=== PATIENT | female | born 1970 | race Caucasian/White ===

== ENCOUNTER 2017-08-21 20:50 | Emergency (ER) | payer OTHER ==
[~2017-08-21] VITALS: Ht 162.6 cm; Wt 65.0 kg
[2017-08-21 21:28] VITALS: BP 109/76; PULSE 89; RESP 18; TEMP 98.1; O2SAT 99
--- NOTE | 2017-08-21 22:32 | RADRPT ---
EXAM DATE/TIME: 08/21/2017 22:17 [place] COMPARISON: No previous studies available for comparison. INDICATIONS : Laceration to right foot from broken plate. MEDICAL HISTORY : None. SURGICAL HISTORY : None. ENCOUNTER: Initial ACUITY: 1 day PAIN SCORE: 3/10 LOCATION: Right foot FINDINGS: Three view examination of the right foot demonstrates no soft tissue swelling, dislocation, or fractu re. The tarsal bones appear intact. The interphalangeal and metatarsophalangeal joints are intact. The calcaneus is intact. Bony mineralization is normal. There is a soft tissue deformity at the fi rst and second digits seen on the oblique view consistent with a laceration. CONCLUSION: No fracture or foreign body. Rickie Cassidy MD on August 21, 2017 at 22:27 Board Certified Radiologist. This report was verified electronically.
[2017-08-21] MEDS ORDERED: TETANUS/DIPHTHERIA TOXOID ADULT 0.5 ML VIAL IM ONE (22:45)
[2017-08-21] MEDS ORDERED: IBUP1TAB7 PO (23:23)
--- NOTE | 2017-08-21 23:24 | PD ---
HPI Chief Complaint: Injury Time Seen by Provider: 22:40 Travel History International Travel<30 days: No Contact w/Intl Traveler<30days: No Traveled to known affect area: No History of Present Illness HPI Patient is a 46-year-old female presenting to the emergency department for evaluation of a right first toe laceration. Patient was washing dishes when she dropped the plate, subsequently cutting her foot. She denies any significant pain. She denies any numbness or tingling. She states her last tetanus vaccine was at least 5 years ago. Symptom onset was sudden, symptoms are mild in nature. There are no alleviating factors. PFSH Past Medical History Medical History: Denies Significant Hx Diminished Hearing: No Tetanus Vaccination: < 5 Years Influenza Vaccination: Yes ?: Not Past Surgical History Hysterectomy: Yes Other Surgery: Yes (stapendectomy x2 ) Social History Alcohol Use: Yes (daily ) Tobacco Use: Yes Allergies-Medications (Allergen,Severity, Reaction): Coded Allergies: No Known Allergies (Unverified , 08/21/17) Review of Systems Except as stated in HPI: all other systems reviewed are Neg Skin: Positive Other (Laceration) Physical Exam Narrative GENERAL: Well-developed, well-nourished, alert female. Presenting in no acute distress. SKIN: Warm and dry. 2.5 cm superficial laceration to the dorsal aspect of the right first toe at the MTP joint. Base of wound is well visualized, there is no retained foreign body or tendon involvement. HEAD: Normocephalic. EYES: No scleral icterus. No injection or drainage. NECK: Supple, trachea midline. No JVD or lymphadenopathy. CARDIOVASCULAR: Regular rate and rhythm without murmurs, gallops, or rubs. RESPIRATORY: Breath sounds equal bilaterally. No accessory muscle use. GASTROINTESTINAL: Abdomen soft, non-tender, nondistended. MUSCULOSKELETAL: No cyanosis, or edema. Patient is neurovascularly intact. With full range of motion with flexion and extension of right first toe. BACK: Nontender without obvious deformity. No CVA tenderness. Data Data Last Documented VS Vital Signs Date Time Temp Pulse Resp B/P (MAP) Pulse Ox O2 Delivery O2 Flow Rate FiO2 08/21/17 21:28 98.1 89 18 109/76 (87) 99 Orders Orders Ice/Cold Pack (08/21/17 21:31) Foot, Complete ([id number]) (08/21/17 21:31) Tetanus/Diphtheria Tox Adult (Tetanus/Di (08/21/17 22:45) Post Op Boot (Shoe) (08/21/17 ) MDM Medical Decision Making Medical Screen Exam Complete: Yes Emergency Medical Condition: Yes Interpretation(s) Last Impressions Foot X-Ray 08/21/17 9191 Signed Impressions: Service Date/Time: Monday, August 21, 2017 22:17 - CONCLUSION: No fracture or foreign body. Rickie Cassidy MD Vital Signs Date Time Temp Pulse Resp B/P (MAP) Pulse Ox O2 Delivery O2 Flow Rate FiO2 08/21/17 21:28 98.1 89 18 109/76 (87) 99 Differential Diagnosis Fracture versus laceration versus retained foreign body versus abrasion versus other Narrative Course Patient is a 46 year-old female presenting to the emergency department with a right first toe laceration. Please see procedure report for laceration repair. Patient's tetanus vaccine was updated in the emergency department, she is neurovascularly intact. She was given wound care instructions and a postop shoe. She verbalized understanding of instructions. Patient stable for discharge. Procedures Procedure Narrative LACERATION LOCATION: Right first toe LENGTH: 2.5 cm NUMBER OF STITCHES/LUCÍA:11 REPAIR: The area of the laceration was prepped with Betadine and sterilely draped. The laceration was infiltrated with 1% lidocaine. The wound was copiously irrigated and explored without evidence of foreign body, tendon injury or neurovascular injury. The wound was closed using 4-0 Prolene. This was a 1 layer repair. A sterile dressing was applied. The patient was advised to keep the dressing clean and dry. Patient tolerated the procedure well. Diagnosis Primary Impression: Laceration of toe Qualified Codes: S91.111A - Laceration without foreign body of right great toe without damage to nail, initial encounter Referrals: Primary Care Physician 1 week Patient Instructions: Care For Your Stitches (ED), General Instructions, Laceration (ED) Additional Instructions: Stitches will need to be removed in 10-14 days, you may return to emergency department or follow-up with your primary doctor Keep stitches clean and dry, apply nonocclusive dressing and use postop shoe and walking Take ibuprofen as needed and as directed for pain Return to emergency department for any new worsening symptoms Med/Other Pt SpecificInfo: Prescription(s) given Scripts Ibuprofen (Ibuprofen) 800 Mg Tab 800 MG PO Q6HR Y for PAIN, #40 TAB 0 Refills Prov: Hailey Gaona 08/21/17 Disposition: 01 DISCHARGE HOME Condition: Stable Hailey Gaona Aug 21, 2017 23:24
== END 2017-08-21 23:40 | disposition home or self-care (01) ==
LOC: NEPD 20:50
DX: S91.111A Laceration without foreign body of right great toe without damage to nail, initial encounter (principal); W45.8XXA Other foreign body or object entering through skin, initial encounter; W20.8XXA Other cause of strike by thrown, projected or falling object, initial encounter; Y93.G1 Activity, food preparation and clean up; Z23 Encounter for immunization; Z72.0 Tobacco use
CPT/HCPCS: 12001; 73630; 90471; 90714; L3260